=== PATIENT | male | born 1940 | race Caucasian/White ===

== ENCOUNTER 2017-05-29 08:31 | Emergency (ER) | payer OTHER ==
[~2017-05-29] VITALS: Ht 180.3 cm; Wt 77.2 kg
[~2017-05-29 08:31] MED LIST: ATARAX; KEFLEX500 MG PO; TYLE
[2017-05-29 09:27] LABS: HEMATOCRIT 32.9 % (38.0-50.0); MCH 27.9 PG (29.0-34.0); MCHC 32.5 G/DL (30.0-36.0); MCV 85.7 FL (86-99); MEAN PLAT.VOLUME 9.7 uM^3 (9.0-12.4); PLATELET COUNT 288 K/uL (156-360); RBC DIS.WIDTH-CV 15.4 % (11.8-14.6); RBC DIS.WIDTH-SD 46.2 % (39-53); RED BLOOD COUNT 3.84 M/uL (4.00-5.50); WHITE BLOOD COUNT 13.1 K/uL (4.1-10.2)
[2017-05-29 09:30] LABS: INTER. NORMALIZED RATIO 1.1; PROTHROMBIN TIME 11.7 SEC (10.2-12.9)
[2017-05-29 09:33] LABS: PTT 24.2 SEC (25-37)
[2017-05-29 09:34] LABS: CHLORIDE 100 mEq/L (99-109); SODIUM 134 mEq/L (136-147)
[2017-05-29 09:36] LABS: GLUCOSE 333 mg/dL (70-99)
[2017-05-29 09:37] LABS: ANION GAP 10 MEQ/L (2-14)
[2017-05-29] MEDS ORDERED: ROBAXIN500 MG PO (09:37)
[2017-05-29] MEDS ORDERED: LIDOCAINE HCL35 GM TP (09:37)
[2017-05-29] MEDS ORDERED: SYMBICORT60 INHALAT IH (09:37)
[2017-05-29] MEDS ORDERED: DOXYCYCLINE HY100 MG PO (09:38)
[2017-05-29 09:39] LABS: GFR ESTIMATE (CALCULATED) > 59 mL/min/
[2017-05-29 09:40] LABS: UREA NITROGEN (BUN) 24 mg/dL (9-23)
[2017-05-29] MEDS ORDERED: MENTHOL/M-SALICYLATE TP (09:40)
[2017-05-29] MEDS ORDERED: GLIPIZIDE5 MG PO (09:41)
[2017-05-29] MEDS ORDERED: EVAC-U-GEN8.6 MG PO (09:41)
[2017-05-29] MEDS ORDERED: ANUSOL-HC21 GM PR (09:42)
[2017-05-29] MEDS ORDERED: DECADRON0.5 MG PO (09:43)
[2017-05-29] MEDS ORDERED: OXYCODONE HCL10 MG PO (09:43)
[2017-05-29] MEDS ORDERED: ATIVAN1 MG PO (09:44)
[2017-05-29] MEDS ORDERED: ALBUTEROL2.5 MG/3 M IH (09:44)
[2017-05-29] MEDS ORDERED: UREA85 GM TP (09:44)
[2017-05-29] MEDS ORDERED: ATARAX10 MG PO (09:45)
[2017-05-29] MEDS ORDERED: SIMVASTATIN40 MG PO (09:46)
[2017-05-29] MEDS ORDERED: CARDIZEM CD,CA180 MG PO (09:46)
[2017-05-29] MEDS ORDERED: DIGITEK125 MC2 PO (09:46)
[2017-05-29] MEDS ORDERED: GLUCOPHAGE500 MG PO (09:47)
[2017-05-29 09:48] LABS: TROP-I INTERPRETATION NEGATIVE; TROPONIN-I 0.05 ng/mL (0.0-0.30)
[2017-05-29 10:15] LABS: ABS NEUTROPHIL COUNT 11.4; ANISOCYTOSIS 1+; BAND NEUTROPHILS 4.4 % (0-8.0); EOSINOPHIL ABS CT 0; HEMATOLOGY COMMENT 1 SN; INSTRUMENT ABS NEUTROPHIL CT 10.8 K/uL; LYMPHOCYTES 1.8 % (15.0-45.0); METAMYELOCYTES 2.6 %; MICROCYTOSIS 1+; MYELOCYTES 6.1 %; PLAT.SUFFICIENCY ADEQUATE; SEG.NEUTROPHILS 82.5 % (46.0-76.0); SPHEROCYTES 1+
[2017-05-29 10:30] LABS: DIGOXIN 0.6 ng/mL (0.8-2.0)
[2017-05-29 15:07] VITALS: BP 102/60
== END 2017-05-29 15:19 | disposition short-term general hospital (02) ==
LOC: EME 08:31
PROVIDERS: Emergency Medicine
DX: I48.91 Unspecified atrial fibrillation (principal); R55 Syncope and collapse; C34.90 Malignant neoplasm of unspecified part of unspecified bronchus or lung; C79.51 Secondary malignant neoplasm of bone; F17.200 Nicotine dependence, unspecified, uncomplicated; E78.5 Hyperlipidemia, unspecified
CPT/HCPCS: 71010; 71275; 80048; 80162; 84484; 85025; 85610; 85730; 93005; 99281; 99285; J1160; J2270; J7030; J7050